=== PATIENT | male | born 2005 | race Two or more races ===

== ENCOUNTER 2025-02-25 15:21 | Emergency (ER) | payer MEDICAID ==
[~2025-02-25] VITALS: Ht 177.8 cm; Wt 109.0 kg
--- NOTE | 2025-02-25 15:41 | ED.PDOC ---
Musculoskeletal HPI Comments 19 year old male presents to the ED with a chief complaint of RT hand pain onset last night. Patient states he became upset, punched a light pole and is currently experiencing RT hand pain with swelling. He denies any PMHx as well as head injury, LOC, headache, numbness/tingling of extremities, dizziness. No other symptoms or modifying factors present at this time. Chief Complaint: Upper Extremity Time Seen by MD: 15:35 Primary Care Provider: NONE Reviewed Notes: Nurses Notes, Medications, Allergies Allergies: Coded Allergies: NO KNOWN ALLERGIES (Unverified , 02/25/25) Information Source: Patient Mode of Arrival: Ambulatory Location: Right Extremity Location: Hand Timing: Days Prehospital treatment: None Severity: Mild Able to Move Extremity: Yes Pain: Moderate Mechanism: Punch Onset of Symptoms: After Trauma Symptoms: Swelling, Pain DVT Risk Factors: NONE Associated signs and symptoms: Hand pain Past Medical History PAST MEDICAL HISTORY: Denies Surgical History: Denies all surgeries Family History Family History: Reviewed,noncontributory to illness, No family hx of Cancer, No family hx of DM, No family hx of Heart kaley, No family hx of HTN, No family hx ofKidney kaley, No family hx of Liver kaley, No family hx of Lung kaley, No family hx of Stroke Social History Smoker: Non-Smoker Alcohol: Denies ETOH Use Drugs: Denies Drug Use Lives In: Home Constitutional: denies: chills, diaphoresis, fatigue, fever, malaise, sweats, weakness, others EENTM: denies: blurred vision, double vision, ear bleeding, ear discharge, ear drainage, ear pain, ear ringing, eye pain, eye redness, hearing loss, mouth pain, mouth swelling, nasal discharge, nose bleeding, nose congestion, nose pain, photophobia, tearing, throat pain, throat swelling, voice changes, others Respiratory: denies: cough, hemoptysis, orthopnea, SOB at rest, shortness of breath, SOB with excertion, stridor, wheezing, others Cardiovascular: denies: chest pain, dizzy spells, diaphoresis, Dyspnea on exertion, edema, irregular heart beat, left arm pain, lightheadedness, palpitations, PND, syncope, others Gastrointestinal: denies: abdomen distended, abdominal pain, blood streaked bowels, constipated, diarrhea, dysphagia, difficulty swallowing, hematemesis, melena, nausea, poor appetite, poor fluid intake, rectal bleeding, rectal pain, vomiting, others Genitourinary: denies: burning, dysuria, flank pain, frequency, hematuria, incontinence, penile discharge, penile sore, pain, testicle pain, testicle swelling, urgency, others Neurological: denies: dizziness, fainting, headache, left sided numbness, left sided weakness, numbness, paresthesia, pre-existing deficit, right sided numbness, right sided weakness, seizure, speech problems, tingling, tremors, weakness, others Musculoskeletal: reports: others (RT hand pain and swelling); denies: back pain, gout, joint pain, joint swelling, muscle pain, muscle stiffness, neck pain Integumetry: denies: bruises, change in color, change in hair/nails, dryness, laceration, lesions, lumps, rash, wounds, others Allergic/Immunocompromised: denies: Difficulty Healing, Frequent Infections, Hives, Itching, others Hematologic/Lymphatic: denies: anemia, blood clots, easy bleeding, easy bruising, swollen glands, others Endocrine: denies: excessive hunger, excessive sweating, excessive thirst, excessive urination, flushing, intolerance to cold, intolerance to heat, unexplained weight gain, unexplained weight loss, others Psychiatric: denies: anxiety, bipolar disorder, depression, hopeless, panic disorder, schizophrenia, sleepless, suicidal, others All Other Systems: Reviewed and Negative Physical Exam General Appearance: Normal HEENT: Normal ENT Inspection, Pharynx Normal, TMs Normal Neck: Full Range of Motion, Non-Tender, Normal, Normal Inspection Respiratory: Chest Non-Tender, Lungs Clear, No Accessory Muscle Use, No Respiratory Distress, Normal Breath Sounds Cardiovascular: No Edema, No JVD, No Murmur, No Gallop, Normal Peripheral Pulses, Regular Rate/Rhythm Breast Exam: Deferred Gastrointestinal: No Organomegaly, Non Tender, No Pulsatile Mass, Normal Bowel Sounds, Soft Genitalia: Deferred Pelvic: Deferred Rectal: Deferred Extremities: No calf tenderness, Normal capillary refill, No pedal edema Musculoskeletal : Location: Right Extremity Location: Hand (mild tenderness to 3rd and 4th MCP with swelling noted. 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 Was a procedure done?: No Differential Diagnosis EXT Differential Diagnosis: Fracture, Sprain, Dislocation X-Ray, Labs, Meds, VS Vital Signs Date Time Temp Pulse Resp B/P (MAP) Pulse Ox O2 Delivery O2 Flow Rate FiO2 02/25/25 15:25 98.8 93 18 134/87 (103) 96 98.8 X-Ray, Labs, Meds, VS Comment Imaging: X-rays and CT scans were reviewed and interpreted by this provider, imaging shows fracture of the 4th proximal metacarpal moderate displaced. Pending radiology review. Laboratory: Labs reviewed and interpreted by this provider. No significant abnormalities noted. Patient has prior medical visits reviewed. Med reconciliation performed Vital signs reviewed Time of 1ST Reevaluation: 16:05 Reevaluation 1ST: Unchanged Patient Education/Counseling: Diagnosis, Treatment, Prognosis, Need For Follow Up (Follow up with the nuclear operations specialist next available appointment) Family Education/Counseling: No Family Present Departure 1 Departure Time of Disposition: 16:13 Impression: Primary Impression: Right hand fracture Qualified Codes: S62.91XA - Unspecified fracture of right wrist and hand, initial encounter for closed fracture Disposition: 01 HOME / SELF CARE / HOMELESS Condition: Fair Referrals: ALEXANDRA INGRAM MD Orthopedics Additional Instructions: Displaced 4th metacarpal fracture of the right hand Discharged With: Self Critical Care Note Critical Care Time?: No Stability Stability form required: No I personally scribed for EDGAR SHANNON ([email or web address]) on 02/25/25 at 15:41. Electronically submitted by Caren Briones ([email or web address]). EDGAR SHANNON Feb 25, 2025 15:41
--- NOTE | 2025-02-25 16:06 | DVH ---
CLINICAL INDICATION: hand pain TECHNIQUE: 3 radiographic views of the right hand were obtained. Comparison: None FINDINGS/IMPRESSION: Mildly displaced fracture base 4th metacarpal. The visualized joint space is well maintained. The alignment is anatomical. There is no radiopaque foreign body. HS:Y
[2025-02-25 16:45] VITALS: BP 132/86; PULSE 65; RESP 16; TEMP 98.6; O2SAT 98
== END 2025-02-25 17:29 | disposition home or self-care (01) ==
LOC: ER 15:21
DX: S62.314A Displaced fracture of base of fourth metacarpal bone, right hand, initial encounter for closed fracture (principal); W22.8XXA Striking against or struck by other objects, initial encounter; Y93.89 Activity, other specified; Y92.89 Other specified places as the place of occurrence of the external cause; Y99.8 Other external cause status
CPT/HCPCS: 29125; 73130